=== PATIENT | female | born 1980 | race Hispanic/Latino ===

== ENCOUNTER → 2022-09-04 | Day surgery (SDC) | payer BC ==
--- NOTE | 2022-09-05 12:02 | RAD REPORT ---
EXAM DESCRIPTION: US - Follow Up Breast [facility] - 09/04/2022 1:19 pm CLINICAL HISTORY: N63.0 COMPARISON: Follow Up Breast [facility] dated 08/28/2022 TECHNIQUE: Left breast sonography was performed targeting the left upper outer quadrant. FINDINGS: The patient presented for a biopsy of a hypoechoic lesion that was deemed suspicious on th e prior diagnostic left breast ultrasound. Up on additional scanning of the area in question, performed both by the communications technologist and myself, it appeared that the area demonstrated similar sonographic appearance to adjacent islands of fibroglandular tissue, and was actually contiguous with adjacent similar appearing fibroglandular tis jennifer along its superior and medial margin. Therefore, this is likely a benign finding. A decision was made to forego the ultrasound guided core biopsy at this time. The findings and subsequent recommenda tions were discussed with the patient. She expressed understanding. Out of an abundance of caution, this region should undergo short-term interval imaging interrogation by targeted ultrasound in 6 months to ensure stability, as this is a finding that was prompted by the patient's baseline screening mammogram. IMPRESSION: Left upper outer breast hypoechoic region demonstrates features most suggestive of an is land of fibroglandular tissue, which appears contiguous with adjacent normal fibroglandular tissue al tania its superior and medial margin. RECOMMENDATION: Short-term interval ultrasound follow-up in 6 months to ensure stability, as this is a finding which was prompted by baseline screening mammography. BI-RADS: 3, probably benign finding. ResultCode: PB6
== END ==
LOC: DS 10:04
PROVIDERS: ATTEND Nurse Practitioner Family
DX: N63.0 Unspecified lump in unspecified breast (principal); Z53.8 Procedure and treatment not carried out for other reasons
CPT/HCPCS: 76642